=== PATIENT | female | born 1990 | race Caucasian/White ===

== ENCOUNTER 2021-03-01 19:51 | Inpatient (IN) | payer OTHER ==
[~2021-03-01] VITALS: Ht 165.1 cm; Wt 108.9 kg
[2021-03-01 20:38] LABS: MCH 29.3 pg (25.0-31.0); MCHC 34.3 g/dL (32.0-36.0); MCV 85.6 fL (78.0-100.0); MPV 9.7 fL (6.0-9.5); RBC 4.09 M/uL (4.20-5.40); RDW 13.2 % (11.5-14.0); WBC 9.2 K/uL (4.0-10.5)
[2021-03-01 20:38] LABS: BILIRUBIN NEGATIVE (NEGATIVE); BLOOD NEGATIVE Ery/uL (NEGATIVE); CLARITY CLEAR (CLEAR); COLOR YELLOW (YELLOW); GLUCOSE (U) NORMAL (NORMAL); LEUKOCYTES 1+ Leu/uL (NEGATIVE); NITRITE NEGATIVE (NEGATIVE); PROTEIN NEGATIVE (NEGATIVE); SPECIFIC GRAVITY 1.025 (1.001-1.030); UROBILINOGEN 0.2 mg/dL (0.2-1.0)
[2021-03-01 20:58] LABS: ALBUMIN 2.6 g/dL (3.4-5.0); BILIRUBIN - TOTAL 0.4 mg/dL (0.2-1.0); CREATININE 0.42 mg/dL (0.51-0.95); POTASSIUM 3.6 mmol/L (3.5-5.1); TOTAL PROTEIN 6.6 g/dL (6.4-8.2)
[2021-03-01 21:05] LABS: BACTERIA 2+
[2021-03-04 07:37] LABS: HCT 34.2 % (37.0-47.0); HGB 11.4 g/dL (12.5-16.0)
== END 2021-03-04 20:25 | disposition home or self-care (01) | DRG 805 ==
LOC: FOD 19:51 → FOB 19:51 → FOD 20:02 → FOB 20:03 → FOD 20:03 → FOB 03-04 20:25
PROVIDERS: ADMIT Obstetrics & Gynecology
PROC: 10E0XZZ Delivery of Products of Conception, External Approach (ICD-10-PCS; principal; 2021-03-03)
PROC: 0UQMXZZ Repair Vulva, External Approach (ICD-10-PCS; 2021-03-03)
DX: O13.4 Gestational [pregnancy-induced] hypertension without significant proteinuria, complicating childbirth (principal); U07.1 COVID-19; Z37.0 Single live birth; O98.52 Other viral diseases complicating childbirth; O24.429 Gestational diabetes mellitus in childbirth, unspecified control; O69.81X0 Labor and delivery complicated by cord around neck, without compression, not applicable or unspecified; O99.214 Obesity complicating childbirth; O35.8XX0 Maternal care for other (suspected) fetal abnormality and damage, not applicable or unspecified; O99.344 Other mental disorders complicating childbirth; F41.9 Anxiety disorder, unspecified; Z3A.37 37 weeks gestation of pregnancy; O71.82 Other specified trauma to perineum and vulva
CPT/HCPCS: 36415; 80053; 81001; 82009; 82947; 82962; 85014; 85018; 86850; 86900; 86901; J0595; J2405; J7120; J7121; U0002